=== PATIENT | female | born 1955 | race Hispanic/Latino ===

== ENCOUNTER 2017-08-24 19:19 | Emergency (ER) | payer SELFPAY ==
[2017-08-24 20:24] VITALS: BP 130/80; PULSE 87; RESP 16; TEMP 97.5; O2SAT 98
--- NOTE | 2017-08-24 20:57 | C.PDOC ---
History Of Present Illness 62 year old female is brought into the emergency department by the police after being found sleeping in the street. Patient is seeking a bed for the night, and has no complaints at this time. Time Seen by Provider: 08/24/17 20:52 Chief Complaint (Nursing): Medical Clearance History Per: Patient History/Exam Limitations: no limitations Onset/Duration Of Symptoms: Hrs Current Symptoms Are (Timing): Gone Past Medical History Reviewed: Historical Data, Nursing Documentation, Vital Signs Vital Signs: Last Vital Signs Temp 97.5 F L 08/24/17 20:19 Pulse 87 08/24/17 20:19 Resp 16 08/24/17 20:19 BP 130/80 08/24/17 20:19 Pulse Ox 98 08/25/17 06:12 - Medical History PMH: No Chronic Diseases Surgical History: No Surg Hx Family History: States: No Known Family Hx - Social History Hx Alcohol Use: No Hx Substance Use: No Review Of Systems Constitutional: Negative for: Fever Gastrointestinal: Negative for: Nausea Neurological: Positive for: Altered Mental Status Physical Exam - Physical Exam Appears: Non-toxic, No Acute Distress Skin: Normal Color, Warm, Dry Head: Atraumatic, Normacephalic Eye(s): bilateral: Normal Inspection Nose: Normal Neck: Normal, Supple Chest: Symmetrical Cardiovascular: Rhythm Regular Respiratory: Normal Breath Sounds Gastrointestinal/Abdominal: Normal Exam, Soft, No Tenderness Extremity: Normal ROM Extremity: Bilateral: Atraumatic Neurological/Psych: Oriented x3, Normal Speech, Normal Cognition ED Course And Treatment O2 Sat by Pulse Oximetry: 98 (RA) Pulse Ox Interpretation: Normal Progress Note: Pt is asymptomatic requests to leave, VSS . 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 - Scribe Statement The provider has reviewed the documentation as recorded by the Scribe (Nate Higginbotham) All medical record entries made by the Scribe were at my direction and personally dictated by me. I have reviewed the chart and agree that the record accurately reflects my personal performance of the history, physical exam, medical decision making, and the department course for this patient. I have also personally directed, reviewed, and agree with the discharge instructions and disposition.
== END 2017-08-24 21:00 | disposition home or self-care (01) ==
LOC: C.ER 19:19
DX: Z00.00 Encounter for general adult medical examination without abnormal findings (principal)